=== PATIENT | female | born 2000 | race African-American/Black ===

== ENCOUNTER 2018-05-23 16:55 | Emergency (ER) | payer OTHER ==
[2018-05-23] MEDS ORDERED: LORAZEPAM INJ 2 MG/1 ML VIAL IM ONE (19:44)
[2018-05-23] MEDS ORDERED: NORMAL SALINE 500 ML IV ONE (19:47)
--- NOTE | 2018-05-23 19:51 | ER Document Report ---
ED Medical Screen (RME) - General Chief Complaint: Tremor Stated Complaint: TREMOR Time Seen by Provider: 05/23/18 19:44 Primary Care Provider: LAURIE MAY MD [Primary Care Provider] - Follow up as needed Mode of Arrival: Wheelchair Information source: Patient Notes: 17-year-old female presented to ED for complete body shaking. She states she had similar symptoms since Sunday. She states yesterday she went to [facility] they gave her some Valium and she got better. She states as the day progresses today the shaking is gotten much worse. Total body shaking started around 4 PM tonight. I did consult Dr. Duran for this patient as she is unable to stop the shaking. I have ordered [address] At[address] IM. Dr. Duran stated he would put orders in for the patient and I have transferred the patient back to room 20. I have greeted and performed a rapid initial assessment of this patient. A comprehensive ED assessment and evaluation of the patient, analysis of test results and completion of medical decision making process will be conducted by an additional ED providers. TRAVEL OUTSIDE OF THE [place] IN LAST 30 DAYS: No - Related Data Allergies/Adverse Reactions: No Known Allergies Allergy (Unverified 05/23/18 16:59) Physical Exam - Vital signs Vitals: Temp Pulse Resp BP Pulse Ox 97.9 F 140 H 18 163/113 H 98 05/23/18 17:13 05/23/18 17:13 05/23/18 17:13 05/23/18 17:13 05/23/18 17:13 Course - Vital Signs Vital signs: Temp Pulse Resp BP Pulse Ox 97.9 F 140 H 18 163/113 H 98 05/23/18 17:13 05/23/18 17:13 05/23/18 17:13 05/23/18 17:13 05/23/18 17:13 Doctor's Discharge - Discharge Referrals: LAURIE MAY MD [Primary Care Provider] - Follow up as needed
--- NOTE | 2018-05-23 20:05 | ER Document Report ---
ED General - General Chief Complaint: Tremor Stated Complaint: TREMOR Time Seen by Provider: 05/23/18 19:44 Primary Care Provider: LAURIE MAY MD [ACTIVE STAFF] - Follow up as needed Mode of Arrival: Wheelchair Notes: 17 female presents the emergency department for body shaking that is worse when sitting or standing. She states it is improved when she lays down but it is still present. She is not on any medications. It is worse on her right side. Dates on Sunday she was visiting her mom upstairs here on the fourth floor laying in bed with her and then when she got up to go to the bathroom she collapsed and started shaking. Is been present ever since. It got worse yesterday prompting her to go to the [facility] and she was given Valium which she did say it helped. She went to the pharmacy for an outpatient prescription for Valium and never got it filled. She says she does have significant discomfort and has a headache. No loss of consciousness or altered mental status. No paresis of any of her limbs. Normal mentation. No numbness or tingling in any of extremities. No shortness of breath or chest pain. No nausea, vomiting, diarrhea or any recent viral illness. She is able to follow commands in all 4 extremities. When I do strength testing it it causes greater discomfort. TRAVEL OUTSIDE OF THE [place] IN LAST 30 DAYS: No - Related Data Allergies/Adverse Reactions: No Known Allergies Allergy (Unverified 05/23/18 16:59) Past Medical History - General Information source: Patient - Social History Smoking Status: Never Smoker Family History: Other - MS Review of Systems - Review of Systems Constitutional: See HPI EENT: No symptoms reported Respiratory: No symptoms reported Gastrointestinal: No symptoms reported Genitourinary: No symptoms reported Female Genitourinary: No symptoms reported Musculoskeletal: No symptoms reported Skin: No symptoms reported Hematologic/Lymphatic: No symptoms reported Neurological/Psychological: No symptoms reported Physical Exam - Vital signs Vitals: Temp Pulse Resp BP Pulse Ox 97.9 F 140 H 18 163/113 H 98 05/23/18 17:13 05/23/18 17:13 05/23/18 17:13 05/23/18 17:13 05/23/18 17:13 Course - Re-evaluation Re-evalutation: 05/23/18 20:54 Patient in discomfort upon initial presentation with rigors on the right side of her body. She was given Ativan 1 mg IM in triage. CT scan done. No obvious pathology, tumors, mass-effect, midline shift, and intracranial bleed. After revisiting her shaking his calm down and is not as severe. Discussed with Dr. Grant and he is going to examine the patient. 05/24/18 03:22 Dr. Grant examined the patient and assumed care of the patient. - Vital Signs Vital signs: Temp Pulse Resp BP Pulse Ox 97.9 F 140 H 15 114/72 100 05/23/18 17:13 05/23/18 17:13 05/23/18 22:36 05/23/18 22:36 05/23/18 22:36 - Laboratory Result Diagrams: 05/23/18 20:00 05/23/18 20:00 Laboratory results interpreted by me: 05/23/18 20:00 Chloride 112 H Carbon Dioxide 19 L Creatine Kinase 844 H Discharge - Discharge Clinical Impression: Dystonia, Inability to walk Condition: Fair Disposition: [facility] Referrals: LAURIE MAY MD [ACTIVE STAFF] - Follow up as needed
[2018-05-23 20:21] LABS: ABSOLUTE BASOPHILS # (AUTO) 0.1 10^3/uL (0.0-0.2); ABSOLUTE EOSINOPHILS # (AUTO) 0.1 10^3/uL (0.0-0.6); ABSOLUTE LYMPHOCYTES (AUTO) 2.3 10^3/uL (0.5-4.7); ABSOLUTE MONOCYTES (AUTO) 0.6 10^3/uL (0.1-1.4); ABSOLUTE NEUT (AUTO) 6.4 10^3/uL (1.7-8.2); BASOPHILS % (AUTO) 0.7 % (0-2); EOSINOPHILS % (AUTO) 0.7 % (0-6); HEMATOCRIT 39.2 % (36.0-47.0); HEMOGLOBIN 13.8 g/dL (12.0-15.5); LYMPHOCYTES % (AUTO) 24.3 % (13-45); MEAN CORPUSCULAR HEMOGLOBIN 30.8 pg (27.0-33.4); MEAN CORPUSCULAR HGB CONC 35.1 g/dL (32.0-36.0); MEAN CORPUSCULAR VOLUME 88 fl (80-97); MONOCYTES % (AUTO) 6.1 % (3-13); PLATELET COUNT 235 10^3/uL (150-450); RED BLOOD COUNT 4.47 10^6/uL (3.72-5.28); RED CELL DISTRIBUTION WIDTH 13.3 % (11.5-14.0); SEGMENTED NEUTROPHILS % (AUTO) 68.2 % (42-78); TOTAL CELLS COUNTED % (AUTO) 100 %; WHITE BLOOD COUNT 9.3 10^3/uL (4.0-10.5)
[2018-05-23 20:34] LABS: ALANINE AMINOTRANSFERASE 14 U/L (5-35); ALKALINE PHOSPHATASE 65 U/L (50-135); ANION GAP 12 (5-19); ASPARTATE AMINO TRANSFERASE 20 U/L (5-30); BILIRUBIN,DIRECT 0.2 mg/dL (0.0-0.4); BILIRUBIN,TOTAL 0.3 mg/dL (0.2-1.3); BLOOD UREA NITROGEN 12 mg/dL (7-20); CARBON DIOXIDE 19 mmol/L (22-30); CHLORIDE 112 mmol/L (98-107); CREATINE KINASE 844 U/L (30-135); GLUCOSE 85 mg/dL (75-110); POTASSIUM 4.2 mmol/L (3.6-5.0); SODIUM 143.4 mmol/L (137-145); TOTAL PROTEIN 7.8 g/dL (6.3-8.2)
--- NOTE | 2018-05-23 21:01 | RADIOLOGY REPORT (SQ) ---
EXAM DESCRIPTION: CT HEAD WITHOUT IV CONTRAST COMPLETED DATE/TME: 05/23/2018 19:48 CLINICAL HISTORY: 17 years, Female, involuntary clonic -right sided mostly COMPARISON: None. TECHNIQUE: Axial images of the head were performed without the use of intravenous contrast, with sagittal and coronal reformatted images. Images stored on PACS. All CT scanners at this facility use dose modulation, iterative reconstruction, and/or weight based dosing when appropriate to reduce radiation dose to as low as reasonably achievable (ALARA). [facility]: Dose Right [facility]: CareDose [facility]: Dose Right [facility]: Teradose 4D [facility]: [employer] LIMITATIONS: None. FINDINGS: Somewhat limited examination due to motion artifact. No evidence of acute hemorrhage or infarct. No evidence of mass or hydrocephalus. IMPRESSION: No acute finding. TECHNICAL DOCUMENTATION: Quality ID # [id number]: Final reports with documentation of one or more dose reduction techniques (e.g., Automated exposure control, adjustment of the mA and/or kV according to patient size, use of iterative reconstruction technique) copyright 2011 [employer]- All Rights Reserved
--- NOTE | 2018-05-23 22:20 | ER Document Report ---
Doctor's Note Notes: 05/23/18 22:18 I did assume care of this patient from the physician dental ceramist assistant. In summary this patient is a 17-year-old female who presents with 4 days of progressively worsening dystonia. This appears to be largely exertional in nature. On examination the patient has minimal jerking with bilateral upper extremity testi ng however in the bilateral lower externally she has profound dystonic movements with any effort both distally and proximally. After multiple attempts I am able to get her knee reflexes 2 result at approximate 2+ although her ankle reflexes are muted bilaterally. She has no true strength loss, 5 out of 5 both distally and proximally bilateral upper and lower extremities. Sensation is intact thr oughout. We attempt to ambulate the patient she is effectively completely unable to ambulance secondary to her degree of dystonic movements. I did discuss with the neurologist on-call at [facility] Dr. Edgar who has accepted the patient in transfer. She has recommended MRI imaging be completed at [facility]. We will proceed with lumbar puncture testing at her request to further eval for possible Guillain-Yip. 05/23/18 23:18 I have performed a lumbar puncture on this patient without any complication. On repeat assessment the patient continues to have significant dystonia particular in the bilateral lower extremities with exertion. Transport is inbound. CSF results pending. Discharge - Discharge Clinical Impression: Dystonia, Inability to walk Condition: Fair Disposition: [facility] Referrals: LAURIE MAY MD [ACTIVE STAFF] - Follow up as needed Critical Care Note - Critical Care Note Total time excluding time spent on procedures (mins): 40 Comments: Critical care time spent obtaining history from patient or surrogate, discussions with consultants, development of treatment plan with patient or surrogate, evaluation of patient's response to treatment, examination of patient, ordering and performing treatments and interventions, ordering and review of laboratory studies, re-evaluation of patient's condition, ordering and review of radiographic studies and review of old charts
[2018-05-23 22:43] VITALS: BP 114/72
[2018-05-23] MEDS ORDERED: LIDOCAINE 1% INJ-PF (10 MG/ML) 30 ML SDV ONE (22:57)
[2018-05-23 23:33] LABS: APPEARANCE ALL TUBES CLEAR; COLOR ALL TUBES COLORLESS; CSF TOTAL VOLUME 3.8 CC; CSF TUBE NUMBER 1; VOLUME TUBE 2 0.9 CC; VOLUME TUBE 3 0.9 CC
[2018-05-23 23:34] LABS: RED BLOOD CELL,CSF 1 /uL (0-10)
[2018-05-23 23:35] LABS: APPEARANCE ALL TUBES CLEAR; COLOR ALL TUBES COLORLESS; CSF TOTAL VOLUME 3.8 CC; CSF TUBE NUMBER 4; VOLUME TUBE 2 0.9 CC; VOLUME TUBE 3 0.9 CC; WHITE BLOOD CELL,CSF 1 /uL (0-5)
[2018-05-23 23:36] LABS: RED BLOOD CELL,CSF 0 /uL (0-10); WHITE BLOOD CELL,CSF 0 /uL (0-5)
[2018-05-23 23:49] LABS: GLUCOSE,CSF 51 mg/dL (40-70); PROTEIN,CSF 28 mg/dL (12-60)
--- NOTE | 2018-05-24 01:24 | ER Document Report ---
ED General - General Chief Complaint: Tremor Stated Complaint: TREMOR Time Seen by Provider: 05/23/18 19:44 Primary Care Provider: LAURIE MAY MD [ACTIVE STAFF] - Follow up as needed Mode of Arrival: Wheelchair Notes: 17 female presents the emergency department for body shaking that is worse when sitting or standing. She states it is improved when she lays down but it is still present. She is not on any medications. It is worse on her right side. Dates on Sunday she was visiting her mom upstairs here on the fourth floor laying in bed with her and then when she got up to go to the bathroom she collapsed and started shaking. Is been present ever since. It got worse yesterday prompting her to go to the [facility] and she was given Valium which she did say it helped. She went to the pharmacy for an outpatient prescription for Valium and never got it filled. She says she does have significant discomfort and has a headache. No loss of consciousness or altered mental status. No paresis of any of her limbs. Normal mentation. No numbness or tingling in any of extremities. No shortness of breath or chest pain. No nausea, vomiting, diarrhea or any recent viral illness. She is able to follow commands in all 4 extremities. When I do strength testing it it causes greater discomfort. TRAVEL OUTSIDE OF THE [place] IN LAST 30 DAYS: No - Related Data Allergies/Adverse Reactions: No Known Allergies Allergy (Unverified 05/23/18 16:59) Past Medical History - General Information source: Patient - Social History Smoking Status: Current Every Day Smoker Frequency of alcohol use: None Drug Abuse: None Lives with: Family Family History: Reviewed & Not Pertinent Patient has suicidal ideation: No Patient has homicidal ideation: No Renal/ Medical History: Denies: Hx Peritoneal Dialysis Review of Systems - Review of Systems Notes: Constitutional: Negative for fever. HENT: Negative for sore throat. Eyes: Negative for visual changes. Cardiovascular: Negative for chest pain. Respiratory: Negative for shortness of breath. Gastrointestinal: Negative for abdominal pain, vomiting or diarrhea. Genitourinary: Negative for dysuria. Musculoskeletal: Negative for back pain. Skin: Negative for rash. Neurological: Negative for headaches, positive for dystonia in lower extremities 10 point ROS negative except as marked above and in HPI. Physical Exam - Vital signs Vitals: Temp Pulse Resp BP Pulse Ox 97.9 F 140 H 18 163/113 H 98 05/23/18 17:13 05/23/18 17:13 05/23/18 17:13 05/23/18 17:13 05/23/18 17:13 Interpretation: Hypertensive, Tachycardic Notes: PHYSICAL EXAMINATION: GENERAL: Appears moderately uncomfortable but in no acute distress HEAD: Atraumatic, normocephalic. EYES: Pupils equal round and reactive to light, extraocular movements intact, sclera anicteric, conjunctiva are normal. ENT: nares patent, oropharynx clear without exudates. Moist mucous membranes. NECK: Normal range of motion, supple without lymphadenopathy LUNGS: Breath sounds clear to auscultation bilaterally and equal. No wheezes rales or rhonchi. HEART: Regular rate and rhythm without murmurs ABDOMEN: Soft, nontender, normoactive bowel sounds. No guarding, no rebound. No masses appreciated. EXTREMITIES: Normal range of motion, no pitting or edema. No cyanosis. NEUROLOGICAL: Face symmetric. Tongue protrudes midline. Extraocular motions intact. Pupils are 2 mm and equally reactive. Normal speech. 5 out of 5 strength in both the distal and proximal upper and lower extremities bilaterally. However particular in the lower extremity as there is a stuttering, dystonic reaction with effort. When walking the patient has spasming, dystonic type movements of her legs in particular is unable to ablate without a 2 person assist. 2+ knee reflexes bilaterally, mute in the ankles bilaterally. Sensation is grossly intact throughout. Finger to nose testing normal. Pronator drift normal. PSYCH: Relaxed for circumstance no obvious anxiety SKIN: Warm, Dry, normal turgor, no rashes or lesions noted. Course - Re-evaluation Re-evalutation: 05/24/18 01:24 05/23/18 22:18 I did assume care of this patient from the physician office assistant. In summary this patient is a 17-year-old female who presents with 4 days of progressively worsening dystonia. This appears to be largely exertional in nature. On examination the patient has minimal jerking with bilateral upper extremity testing however in the bilateral lower externally she has profound dystonic movements with any effort both distally and proximally. After multiple attempts I am able to get her knee reflexes 2 result at approximate 2+ although her ankle reflexes are muted bilaterally. She has no true strength loss, 5 out of 5 both distally and proximally bilateral upper and lower extremities. Sensation is intact throughout. We attempt to ambulate the patient she is effectively completely unable to ambulance secondary to her degree of dystonic movements. I did discuss with the neurologist on-call at [facility] Dr. Edgar who has accepted the patient in transfer. She has recommended MRI imaging be completed at [facility]. We will proceed with lumbar puncture testing at her request to further eval for possible Guillain-Yip. 05/23/18 23:18 I have performed a lumbar puncture on this patient without any complication. On repeat assessment the patient continues to have significant dystonia particular in the bilateral lower extremities with exertion. Transport is inbound. CSF results pending. - Vital Signs Vital signs: Temp Pulse Resp BP Pulse Ox 97.9 F 140 H 15 114/72 100 05/23/18 17:13 05/23/18 17:13 05/23/18 22:36 05/23/18 22:36 05/23/18 22:36 - Laboratory Result Diagrams: 05/23/18 20:00 05/23/18 20:00 Laboratory results interpreted by me: 05/23/18 20:00 Chloride 112 H Carbon Dioxide 19 L Creatine Kinase 844 H Procedures - Lumbar Puncture Lumbar puncture Consent obtained: Yes Lumbar puncture pre-procedure: Sterile PPE donned, Chloraprep applied, Sterile drapes applied Patient position: Sitting Needle size: 22 Lumbar puncture location: l4-5 Anesthetic type: 1% Lidocaine mL's of anesthetic: 4 Amount/type of drainage: 5cc clear Number of attempts: 1 Complications: No Critical Care Note - Critical Care Note Total time excluding time spent on procedures (mins): 40 Comments: Critical care time spent obtaining history from patient or surrogate, discussions with consultants, development of treatment plan with patient or surrogate, evaluation of patient's response to treatment, examination of patient, ordering and performing treatments and interventions, ordering and review of laboratory studies, re-evaluation of patient's condition, ordering and review of radiographic studies and review of old charts Discharge - Discharge Clinical Impression: Dystonia, Inability to walk Condition: Fair Disposition: [facility] Referrals: LAURIE MAY MD [ACTIVE STAFF] - Follow up as needed
== END 2018-05-24 00:04 | disposition short-term general hospital (02) ==
LOC: ER 16:55
DX: G24.9 Dystonia, unspecified (principal); R26.2 Difficulty in walking, not elsewhere classified; R51 Headache
CPT/HCPCS: 99291; 96372; 96360; 36415; 87070; 87205; 82550; 84702; 83735; 83916 ×2; 85025; 89050; 82945; 84157; 80053; 70450; 62270; J2060; J7040